=== PATIENT | male | born 1955 | race Caucasian/White ===

== ENCOUNTER → 2017-12-10 | Outpatient (CLI) | payer OTHER | END | disposition home or self-care (01) | LOC: CDC 12:30 | DX: Z01.810 Encounter for preprocedural cardiovascular examination (principal) | CPT/HCPCS: 93000 ==

== ENCOUNTER → 2017-12-18 | Outpatient (CLI) | payer OTHER ==
[~2017-12-18] MED LIST: ACTOS15 MG PO; BYSTOLIC10 MG PO; FLEXERIL5 MG PO; FLOMAX0.4 MG PO; GLUCOTROL10 MG PO; LASIX40 MG PO; LIPITOR20 MG PO; MAGNESIUM400 M1 PO; NEURONTIN300 MG PO; OXYCODONE HCL10 MG PO; OXYCODONE HCL5 M1 PO; PERCOCET 10/1 TABLET PO; ZESTRIL30 MG PO
== END | disposition home or self-care (01) ==
LOC: RAD 13:37
PROC: BB4BZZZ Ultrasonography of Pleura (ICD-10-PCS; principal; 2017-12-18)
DX: R18.8 Other ascites (principal); K74.60 Unspecified cirrhosis of liver; Z53.09 Procedure and treatment not carried out because of other contraindication
CPT/HCPCS: 76705

== ENCOUNTER 2017-12-19 06:35 | Inpatient (IN) | payer OTHER ==
[~2017-12-19] VITALS: Ht 188 cm; Wt 129.7 kg
[~2017-12-19 06:35] MED LIST changes: -PERCOCET 10/1 TABLET PO
[2017-12-19 07:00] VITALS: BP 173/80
[2017-12-19 11:28] LABS: TROP-I INTERPRETATION NEGATIVE; TROPONIN-I < 0.01 ng/mL (0.0-0.30)
[2017-12-19 11:39] LABS: CHLORIDE 106 MEQ/L (99-109); CREATININE 2.5 MG/DL (0.6-1.3); GFR ESTIMATE (CALCULATED) 28 mL/min/ (58.99-99999); GLUCOSE 191 mg/dL (70-99); SODIUM 141 MEQ/L (136-147); UREA NITROGEN (BUN) 56 mg/dL (9-23)
[2017-12-19 16:08] VITALS: BP 178/83
[2017-12-20 00:06] VITALS: BP 174/81
[2017-12-20 05:52] LABS: HEMATOCRIT 30.1 % (38.0-50.0); HEMOGLOBIN 9.7 G/DL (12.5-16.6); MCH 28.4 PG (29.0-34.0); MCHC 32.2 G/DL (30.0-36.0); MCV 88.3 FL (86-99); RBC DIS.WIDTH-CV 14.1 % (11.8-14.6); RED BLOOD COUNT 3.41 M/uL (4.00-5.50); WHITE BLOOD COUNT 6.3 K/uL (4.1-10.2)
[2017-12-20 06:09] LABS: PLATELET COUNT 97 K/uL (156-360)
[2017-12-20 06:23] LABS: CHLORIDE 105 MEQ/L (99-109); CREATININE 2.6 MG/DL (0.6-1.3); GFR ESTIMATE (CALCULATED) 27 mL/min/ (58.99-99999); GLUCOSE 196 mg/dL (70-99); POTASSIUM 4.7 MEQ/L (3.7-5.4); SODIUM 136 MEQ/L (136-147); UREA NITROGEN (BUN) 61 mg/dL (9-23)
[2017-12-20 07:01] LABS: TROP-I INTERPRETATION NEGATIVE; TROPONIN-I < 0.01 ng/mL (0.0-0.30)
[2017-12-20 07:45] VITALS: BP 180/86
[2017-12-20 11:11] VITALS: BP 138/76
[2017-12-20 16:53] VITALS: BP 162/80
[2017-12-21 00:07] VITALS: BP 148/73
[2017-12-21 07:51] VITALS: BP 136/72
[2017-12-21 10:51] VITALS: BP 124/60
[2017-12-21] MEDS ORDERED: PERCOCET 10/1 TABLET PO (13:44)
[2017-12-21 15:54] VITALS: BP 135/71
[2017-12-21 23:43] VITALS: BP 165/77
[2017-12-22 07:43] VITALS: BP 143/78
[2017-12-22 16:14] VITALS: BP 139/66
[2017-12-22 23:54] VITALS: BP 145/71
[2017-12-23 06:25] VITALS: BP 148/78
[2017-12-23 07:47] VITALS: BP 124/67
[2017-12-23 16:30] VITALS: BP 136/71
[2017-12-23 23:24] VITALS: BP 135/66
[2017-12-24 04:52] LABS: BASOPHIL (%) 0.4 % (0-1); EOSINOPHIL (%) 2.5 % (0-5); EOSINOPHIL COUNT 0.1 K/uL (0-0.3); HEMATOCRIT 23.5 % (38.0-50.0); HEMOGLOBIN 7.8 G/DL (12.5-16.6); IMMATURE GRANULOCYTE (%) 1.1 % (0.0-0.7); LYMPHOCYTE (%) 29.8 % (15-42); LYMPHOCYTE COUNT 0.8 K/uL (1.0-2.8); MCH 28.9 PG (29.0-34.0); MCHC 33.2 G/DL (30.0-36.0); MONOCYTE (%) 12.1 % (3-12); MONOCYTE COUNT 0.3 K/uL (0-0.8); NEUTROPHIL (%) 54.1 % (45-76); NEUTROPHIL COUNT 1.5 K/uL (1.8-6.4); PLATELET COUNT 78 K/uL (156-360); RBC DIS.WIDTH-CV 13.8 % (11.8-14.6); RBC DIS.WIDTH-SD 43.3 % (39-53); WHITE BLOOD COUNT 2.8 K/uL (4.1-10.2)
[2017-12-24 04:58] LABS: CHLORIDE 106 mEq/L (99-109); POTASSIUM 5.4 mEq/L (3.7-5.4); SODIUM 136 mEq/L (136-147)
[2017-12-24 04:59] LABS: GLUCOSE 111 mg/dL (70-99)
[2017-12-24 05:03] LABS: CREATININE 2.6 mg/dL (0.6-1.3); GFR ESTIMATE (CALCULATED) 27 mL/min/ (58.99-99999)
[2017-12-24 05:04] LABS: UREA NITROGEN (BUN) 69 mg/dL (9-23)
[2017-12-24 10:03] LABS: HEMOGLOBIN A1c (GLYCOHEMOGLOB) 5.6 % (Below 5.7)
== END 2017-12-24 08:51 | disposition home health service (06) | DRG 475 ==
LOC: SDC → 2SOUTH 10:25 → 3EAST 10:25 → ENRESERV 10:27 → 3EAST 15:19 → SDC 16:30 → 3EAST 12-24 08:51
PROVIDERS: Hospitalist; Internal Medicine; Surgery
PROC: 0Y6H0Z1 Detachment at Right Lower Leg, High, Open Approach (ICD-10-PCS; principal; 2017-12-19)
DX: T87.89 Other complications of amputation stump (principal); D62 Acute posthemorrhagic anemia; Y83.5 Amputation of limb(s) as the cause of abnormal reaction of the patient, or of later complication, without mention of misadventure at the time of the procedure; E11.65 Type 2 diabetes mellitus with hyperglycemia; I10 Essential (primary) hypertension; G89.4 Chronic pain syndrome; Z59.9 Problem related to housing and economic circumstances, unspecified; N40.0 Benign prostatic hyperplasia without lower urinary tract symptoms; Z79.891 Long term (current) use of opiate analgesic; M19.90 Unspecified osteoarthritis, unspecified site; T38.0X5A Adverse effect of glucocorticoids and synthetic analogues, initial encounter
CPT/HCPCS: 36415; 76705; 80048; 82948; 83036; 84484; 85025; 85027; 85610; 85730; 87641; C2628; J0690; J1170; J1650; J1815; J2250; J3010; J7120

== ENCOUNTER → 2018-02-20 | Outpatient (CLI) | payer OTHER ==
[~2018-02-20] VITALS: Ht 188 cm; Wt 124.7 kg
[~2018-02-20] MED LIST changes: +PERCOCET 10/1 TABLET PO
== END | disposition home or self-care (01) ==
LOC: AMB 10:15
PROVIDERS: Internal Medicine Gastroenterology
PROC: 0DJ08ZZ Inspection of Upper Intestinal Tract, Via Natural or Artificial Opening Endoscopic (ICD-10-PCS; principal; 2018-02-20)
DX: K29.70 Gastritis, unspecified, without bleeding (principal); K76.6 Portal hypertension; K31.89 Other diseases of stomach and duodenum; R18.8 Other ascites; K74.60 Unspecified cirrhosis of liver; B18.2 Chronic viral hepatitis C; F10.21 Alcohol dependence, in remission; E72.20 Disorder of urea cycle metabolism, unspecified; F17.200 Nicotine dependence, unspecified, uncomplicated; E11.22 Type 2 diabetes mellitus with diabetic chronic kidney disease; I12.9 Hypertensive chronic kidney disease with stage 1 through stage 4 chronic kidney disease, or unspecified chronic kidney disease; N18.4 Chronic kidney disease, stage 4 (severe); Z82.49 Family history of ischemic heart disease and other diseases of the circulatory system; Z88.5 Allergy status to narcotic agent
CPT/HCPCS: 82948

== ENCOUNTER 2018-05-17 17:49 | Inpatient (IN) | payer OTHER ==
[~2018-05-17] VITALS: Ht 188 cm; Wt 121.5 kg
[2018-05-17 18:47] LABS: HEMATOCRIT 24.5 % (38.0-50.0); HEMOGLOBIN 7.7 G/DL (12.5-16.6); MCH 25.9 PG (29.0-34.0); MCHC 31.4 G/DL (30.0-36.0); MCV 82.5 FL (86-99); PLATELET COUNT 212 K/uL (156-360); RBC DIS.WIDTH-CV 16.9 % (11.8-14.6); RBC DIS.WIDTH-SD 49.8 % (39-53); RED BLOOD COUNT 2.97 M/uL (4.00-5.50); WHITE BLOOD COUNT 17.6 K/uL (4.1-10.2)
[2018-05-17 18:57] LABS: ALBUMIN 2.6 g/dL (3.2-4.8)
[2018-05-17 18:59] LABS: GLUCOSE 131 mg/dL (70-99)
[2018-05-17 19:01] LABS: TOTAL BILIRUBIN 0.6 mg/dL (0.0-1.0)
[2018-05-17 19:03] LABS: ALKALINE PHOSPHATASE 293 IU/L (3-129); CREATININE 2.8 mg/dL (0.6-1.3); GFR ESTIMATE (CALCULATED) 25 mL/min/ (58.99-99999)
[2018-05-17 19:04] LABS: UREA NITROGEN (BUN) 88 mg/dL (9-23)
[2018-05-17 19:05] LABS: AST (GOT) 123 IU/L (2-34)
[2018-05-17 19:06] LABS: ALT (GPT) 54 IU/L (3-49); LIPASE 126 U/L (1.0-51.0)
[2018-05-17 19:09] LABS: TROP-I INTERPRETATION NEGATIVE; TROPONIN-I < 0.01 ng/mL (0.0-0.30)
[2018-05-17 19:16] LABS: CHLORIDE 107 mEq/L (99-109); SODIUM 132 mEq/L (136-147)
[2018-05-17 19:18] LABS: TOTAL PROTEIN 7.7 g/dL (6.4-8.3)
[2018-05-17 19:20] LABS: POTASSIUM 7.7 mEq/L (3.7-5.4)
[2018-05-17 20:01] LABS: INTER. NORMALIZED RATIO 1.3
[2018-05-17 20:04] LABS: PTT 32.1 SEC (25-37)
[2018-05-17 20:08] LABS: PCO2 21 mm Hg (35-45); PO2 102 mm Hg (80-100); pH 7.37 (7.35-7.45)
[2018-05-17 20:09] LABS: BASE EXCESS -10.9 mEq/L (-3 to +3); BICARBONATE 12.1 mEq/L (22-26)
[2018-05-17 20:10] LABS: COMMENTS - BLOOD GASES C+A+; DEVICE ROOM AIR; SITE RR; TOTAL RESP RATE 25 resp/min
[2018-05-17] MEDS ORDERED: OXYCODONE HCL10 MG PO (20:13)
[2018-05-17] MEDS ORDERED: PROTONIX40 MG PO (20:14)
[2018-05-17] MEDS ORDERED: CARDURA2 M1 PO (20:14)
[2018-05-17] MEDS ORDERED: IRON325 M1 PO ×2 (20:14)
[2018-05-17 20:46] LABS: APPEARANCE CLEAR ((CLEAR)); BILIRUBIN NEGATIVE; BLOOD NEGATIVE; COLOR YELLOW ((YELLOW)); GLUCOSE (STRIP) NEGATIVE; KETONES NEGATIVE; LEUKOCYTES TRACE; NITRITE NEGATIVE; PROTEIN (STRIP) 30; SPECIFIC GRAVITY 1.013 (1.000-1.030); UROBILINOGEN 0.2 MG/DL (0.2-1.0)
[2018-05-17 20:55] LABS: BACTERIA RARE /HPF; EPITHELIAL CELLS RARE /HPF; MUCUS TRACE /LPF; RED BLOOD CELLS 0-5 /HPF (0-5); UCUL ADDED? NO; WHITE BLOOD CELLS 0-5 /HPF (0-5)
[2018-05-17 22:20] LABS: CHLORIDE 108 mEq/L (99-109); SODIUM 134 mEq/L (136-147)
[2018-05-17 22:26] LABS: CREATININE 2.7 mg/dL (0.6-1.3); GFR ESTIMATE (CALCULATED) 26 mL/min/ (58.99-99999)
[2018-05-17 22:27] LABS: UREA NITROGEN (BUN) 88 mg/dL (9-23)
[2018-05-17 22:50] LABS: GLUCOSE 207 mg/dL (70-99); POTASSIUM 7.1 mEq/L (3.7-5.4)
[2018-05-17 23:59] VITALS: BP 134/64
[2018-05-18] VITALS (7 sets, daily range): BP systolic 97–146; BP diastolic 52–75
[2018-05-18 06:27] LABS: HEMATOCRIT 20.5 % (38.0-50.0); MCH 24.9 PG (29.0-34.0); MCHC 30.7 G/DL (30.0-36.0); NRBC (%) 0.2 /100 WBC (0-0); RBC DIS.WIDTH-SD 48.9 % (39-53); RED BLOOD COUNT 2.53 M/uL (4.00-5.50); WHITE BLOOD COUNT 12.4 K/uL (4.1-10.2)
[2018-05-18 06:31] LABS: HEMOGLOBIN 6.3 G/DL (12.5-16.6)
[2018-05-18 06:36] LABS: CHLORIDE 106 MEQ/L (99-109); CREATININE 2.6 MG/DL (0.6-1.3); GFR ESTIMATE (CALCULATED) 27 mL/min/ (58.99-99999); GLUCOSE 178 mg/dL (70-99); POTASSIUM 5.8 MEQ/L (3.7-5.4); SODIUM 137 MEQ/L (136-147); UREA NITROGEN (BUN) 77 mg/dL (9-23)
[2018-05-18 06:44] LABS: PLAT.SUFFICIENCY DECREASED
[2018-05-18 06:49] LABS: PLATELET COUNT 140 K/uL (156-360)
[2018-05-19] VITALS (13 sets, daily range): BP systolic 104–160; BP diastolic 58–91
[2018-05-19 06:21] LABS: BASOPHIL (%) 0.2 % (0-1); EOSINOPHIL (%) 0.2 % (0-5); HEMATOCRIT 21.8 % (38.0-50.0); IMMATURE GRANULOCYTE (%) 0.9 % (0.0-0.7); LYMPHOCYTE (%) 8.4 % (15-42); LYMPHOCYTE COUNT 0.9 K/uL (1.0-2.8); MCH 25.7 PG (29.0-34.0); MCHC 31.7 G/DL (30.0-36.0); MCV 81.3 FL (86-99); MONOCYTE (%) 6.4 % (3-12); MONOCYTE COUNT 0.7 K/uL (0-0.8); NEUTROPHIL (%) 83.9 % (45-76); NEUTROPHIL COUNT 8.7 K/uL (1.8-6.4); PLATELET COUNT 126 K/uL (156-360); RBC DIS.WIDTH-CV 16.4 % (11.8-14.6); RBC DIS.WIDTH-SD 47.9 % (39-53); RED BLOOD COUNT 2.68 M/uL (4.00-5.50); WHITE BLOOD COUNT 10.3 K/uL (4.1-10.2)
[2018-05-19 06:24] LABS: HEMOGLOBIN 6.9 G/DL (12.5-16.6)
[2018-05-19 06:27] LABS: CHLORIDE 98 MEQ/L (99-109); CREATININE 2.2 MG/DL (0.6-1.3); GFR ESTIMATE (CALCULATED) 33 mL/min/ (58.99-99999); SODIUM 135 MEQ/L (136-147); UREA NITROGEN (BUN) 63 mg/dL (9-23)
[2018-05-19 06:28] LABS: GLUCOSE 118 mg/dL (70-99); POTASSIUM 4.5 MEQ/L (3.7-5.4)
[2018-05-20] VITALS (7 sets, daily range): BP systolic 109–144; BP diastolic 56–75
[2018-05-20 06:31] LABS: HEMATOCRIT 25.3 % (38.0-50.0); HEMOGLOBIN 8.1 G/DL (12.5-16.6); MCH 26.6 PG (29.0-34.0); MCV 83.2 FL (86-99); PLATELET COUNT 133 K/uL (156-360); RBC DIS.WIDTH-CV 16.3 % (11.8-14.6); RBC DIS.WIDTH-SD 49.7 % (39-53); RED BLOOD COUNT 3.04 M/uL (4.00-5.50); WHITE BLOOD COUNT 11.9 K/uL (4.1-10.2)
[2018-05-20 07:00] LABS: CHLORIDE 95 MEQ/L (99-109); CREATININE 2.3 MG/DL (0.6-1.3); GFR ESTIMATE (CALCULATED) 31 mL/min/ (58.99-99999); POTASSIUM 4.5 MEQ/L (3.7-5.4); SODIUM 132 MEQ/L (136-147); UREA NITROGEN (BUN) 59 mg/dL (9-23)
[2018-05-20 07:01] LABS: GLUCOSE 80 mg/dL (70-99)
[2018-05-21 03:26] VITALS: BP 158/80
[2018-05-21 06:12] LABS: HEMATOCRIT 26.5 % (38.0-50.0); HEMOGLOBIN 8.4 G/DL (12.5-16.6); MCH 26.3 PG (29.0-34.0); MCHC 31.7 G/DL (30.0-36.0); MCV 83.1 FL (86-99); NRBC (%) 0.2 /100 WBC (0-0); PLATELET COUNT 143 K/uL (156-360); RBC DIS.WIDTH-CV 16.4 % (11.8-14.6); RBC DIS.WIDTH-SD 49.4 % (39-53); RED BLOOD COUNT 3.19 M/uL (4.00-5.50); WHITE BLOOD COUNT 9.7 K/uL (4.1-10.2)
[2018-05-21 06:53] LABS: CHLORIDE 97 MEQ/L (99-109); CREATININE 2.6 MG/DL (0.6-1.3); GFR ESTIMATE (CALCULATED) 27 mL/min/ (58.99-99999); SODIUM 133 MEQ/L (136-147); UREA NITROGEN (BUN) 64 mg/dL (9-23)
[2018-05-21 07:05] LABS: GLUCOSE 128 mg/dL (70-99); POTASSIUM 5.5 MEQ/L (3.7-5.4)
[2018-05-21 08:08] VITALS: BP 112/61
[2018-05-21 15:50] VITALS: BP 132/79
[2018-05-22 00:17] VITALS: BP 119/73
[2018-05-22 06:04] LABS: BASOPHIL (%) 0.2 % (0-1); EOSINOPHIL (%) 0.7 % (0-5); EOSINOPHIL COUNT 0.1 K/uL (0-0.3); HEMATOCRIT 25.6 % (38.0-50.0); HEMOGLOBIN 8.1 G/DL (12.5-16.6); IMMATURE GRANULOCYTE (%) 1.1 % (0.0-0.7); LYMPHOCYTE (%) 10.5 % (15-42); LYMPHOCYTE COUNT 0.9 K/uL (1.0-2.8); MCH 26.6 PG (29.0-34.0); MCHC 31.6 G/DL (30.0-36.0); MCV 83.9 FL (86-99); MONOCYTE (%) 6.7 % (3-12); MONOCYTE COUNT 0.6 K/uL (0-0.8); NEUTROPHIL (%) 80.8 % (45-76); NEUTROPHIL COUNT 6.9 K/uL (1.8-6.4); PLATELET COUNT 136 K/uL (156-360); RBC DIS.WIDTH-CV 16.7 % (11.8-14.6); RBC DIS.WIDTH-SD 51.1 % (39-53); RED BLOOD COUNT 3.05 M/uL (4.00-5.50); WHITE BLOOD COUNT 8.6 K/uL (4.1-10.2)
[2018-05-22 06:40] LABS: HCV RNA (LOG IU/mL) 6.19 (())
[2018-05-22 06:46] LABS: CHLORIDE 94 MEQ/L (99-109); CREATININE 2.7 MG/DL (0.6-1.3); GFR ESTIMATE (CALCULATED) 26 mL/min/ (58.99-99999); GLUCOSE 108 mg/dL (70-99); POTASSIUM 4.4 MEQ/L (3.7-5.4); SODIUM 131 MEQ/L (136-147); UREA NITROGEN (BUN) 66 mg/dL (9-23)
[2018-05-22 06:57] VITALS: BP 111/55
[2018-05-22 14:52] LABS: TYPE OF FLUID PARACENTESIS
[2018-05-22 15:16] VITALS: BP 154/72
[2018-05-22 16:09] LABS: APPEARANCE SLIGHTLY CLOUDY; BODY FLUID EOSINOPHILS 0 % (0-25); BODY FLUID RBC'S 9000 /MM^3 (0-100); BODY FLUID WBC'S 458 /MM^3 (0-500); MONONUCLEAR WBC'S 17 %; POLYNUCLEAR WBC'S 83 % (0-25)
[2018-05-22 16:28] LABS: BODY FLUID GLUCOSE 133 MG/DL; BODY FLUID LDH 66 IU/L; BODY FLUID PROTEIN < 3.0 G/DL
[2018-05-22 23:23] VITALS: BP 157/69
[2018-05-23 05:38] LABS: BASOPHIL (%) 0.4 % (0-1); EOSINOPHIL (%) 0.6 % (0-5); EOSINOPHIL COUNT 0.1 K/uL (0-0.3); HEMATOCRIT 23.9 % (38.0-50.0); HEMOGLOBIN 7.7 G/DL (12.5-16.6); IMMATURE GRANULOCYTE (%) 0.6 % (0.0-0.7); LYMPHOCYTE (%) 10.1 % (15-42); LYMPHOCYTE COUNT 0.8 K/uL (1.0-2.8); MCH 26.9 PG (29.0-34.0); MCHC 32.2 G/DL (30.0-36.0); MCV 83.6 FL (86-99); MONOCYTE (%) 7.3 % (3-12); MONOCYTE COUNT 0.6 K/uL (0-0.8); NEUTROPHIL COUNT 6.3 K/uL (1.8-6.4); PLATELET COUNT 112 K/uL (156-360); RBC DIS.WIDTH-CV 16.6 % (11.8-14.6); RBC DIS.WIDTH-SD 50.5 % (39-53); RED BLOOD COUNT 2.86 M/uL (4.00-5.50); WHITE BLOOD COUNT 7.8 K/uL (4.1-10.2)
[2018-05-23 06:48] LABS: CHLORIDE 97 MEQ/L (99-109); CREATININE 2.4 MG/DL (0.6-1.3); GFR ESTIMATE (CALCULATED) 29 mL/min/ (58.99-99999); GLUCOSE 89 mg/dL (70-99); POTASSIUM 4.4 MEQ/L (3.7-5.4); SODIUM 133 MEQ/L (136-147); UREA NITROGEN (BUN) 65 mg/dL (9-23)
[2018-05-23 07:43] VITALS: BP 136/67
[2018-05-23 15:29] VITALS: BP 129/68
[2018-05-23 16:40] LABS: TROP-I INTERPRETATION NEGATIVE; TROPONIN-I < 0.01 ng/mL (0.0-0.30)
[2018-05-23 20:00] LABS: BODY FLUID PH 7.9 (())
[2018-05-24 00:23] VITALS: BP 137/73
[2018-05-24 06:04] LABS: BASOPHIL (%) 0.5 % (0-1); EOSINOPHIL COUNT 0.1 K/uL (0-0.3); HEMOGLOBIN 8.2 G/DL (12.5-16.6); IMMATURE GRANULOCYTE (%) 0.7 % (0.0-0.7); LYMPHOCYTE (%) 7.8 % (15-42); LYMPHOCYTE COUNT 0.7 K/uL (1.0-2.8); MCH 26.7 PG (29.0-34.0); MCHC 31.5 G/DL (30.0-36.0); MCV 84.7 FL (86-99); MONOCYTE (%) 6.2 % (3-12); MONOCYTE COUNT 0.6 K/uL (0-0.8); NEUTROPHIL (%) 83.8 % (45-76); NEUTROPHIL COUNT 7.4 K/uL (1.8-6.4); PLATELET COUNT 122 K/uL (156-360); RBC DIS.WIDTH-CV 16.8 % (11.8-14.6); RBC DIS.WIDTH-SD 51.8 % (39-53); RED BLOOD COUNT 3.07 M/uL (4.00-5.50); WHITE BLOOD COUNT 8.8 K/uL (4.1-10.2)
[2018-05-24 06:27] LABS: CHLORIDE 98 MEQ/L (99-109); CREATININE 2.4 MG/DL (0.6-1.3); GFR ESTIMATE (CALCULATED) 29 mL/min/ (58.99-99999); POTASSIUM 4.7 MEQ/L (3.7-5.4); SODIUM 132 MEQ/L (136-147); UREA NITROGEN (BUN) 63 mg/dL (9-23)
[2018-05-24 06:37] LABS: GLUCOSE 153 mg/dL (70-99)
[2018-05-24 07:36] VITALS: BP 159/76
[2018-05-24 09:41] LABS: TYPE OF FLUID PARACENTESIS
[2018-05-24 09:58] LABS: APPEARANCE SLIGHTLY HAZY; BODY FLUID RBC'S 5000 /MM^3 (0-100); BODY FLUID WBC'S 485 /MM^3 (0-500)
[2018-05-24 10:36] LABS: BODY FLUID EOSINOPHILS 2 % (0-25); MONONUCLEAR WBC'S 52 %; POLYNUCLEAR WBC'S 46 % (0-25)
[2018-05-24 16:00] VITALS: BP 146/71
[2018-05-24 23:38] VITALS: BP 142/76
[2018-05-25 06:03] LABS: BASOPHIL (%) 0.8 % (0-1); BASOPHIL COUNT 0.1 K/uL (0-0.1); EOSINOPHIL (%) 0.5 % (0-5); HEMATOCRIT 26.7 % (38.0-50.0); HEMOGLOBIN 8.2 G/DL (12.5-16.6); IMMATURE GRANULOCYTE (%) 0.9 % (0.0-0.7); LYMPHOCYTE (%) 9.3 % (15-42); LYMPHOCYTE COUNT 0.7 K/uL (1.0-2.8); MCH 26.3 PG (29.0-34.0); MCHC 30.7 G/DL (30.0-36.0); MCV 85.6 FL (86-99); MONOCYTE (%) 8.8 % (3-12); MONOCYTE COUNT 0.7 K/uL (0-0.8); NEUTROPHIL (%) 79.7 % (45-76); NEUTROPHIL COUNT 6.3 K/uL (1.8-6.4); PLATELET COUNT 111 K/uL (156-360); RBC DIS.WIDTH-CV 16.7 % (11.8-14.6); RBC DIS.WIDTH-SD 52.1 % (39-53); RED BLOOD COUNT 3.12 M/uL (4.00-5.50); WHITE BLOOD COUNT 7.9 K/uL (4.1-10.2)
[2018-05-25 06:50] LABS: CHLORIDE 97 MEQ/L (99-109); CREATININE 2.3 MG/DL (0.6-1.3); GFR ESTIMATE (CALCULATED) 31 mL/min/ (58.99-99999); GLUCOSE 169 mg/dL (70-99); SODIUM 132 MEQ/L (136-147); UREA NITROGEN (BUN) 65 mg/dL (9-23)
[2018-05-25 06:52] LABS: POTASSIUM 5.8 MEQ/L (3.7-5.4)
[2018-05-25 07:14] VITALS: BP 141/73
[2018-05-25 16:13] VITALS: BP 138/68
[2018-05-25 22:52] VITALS: BP 184/79
[2018-05-25 23:42] VITALS: BP 141/79
[2018-05-26 05:50] LABS: BASOPHIL (%) 0.5 % (0-1); EOSINOPHIL (%) 0.5 % (0-5); HEMATOCRIT 24.6 % (38.0-50.0); HEMOGLOBIN 7.8 G/DL (12.5-16.6); LYMPHOCYTE (%) 9.8 % (15-42); LYMPHOCYTE COUNT 0.8 K/uL (1.0-2.8); MCH 27.2 PG (29.0-34.0); MCHC 31.7 G/DL (30.0-36.0); MCV 85.7 FL (86-99); MONOCYTE COUNT 0.7 K/uL (0-0.8); NEUTROPHIL (%) 79.2 % (45-76); NEUTROPHIL COUNT 6.4 K/uL (1.8-6.4); NRBC (%) 0.2 /100 WBC (0-0); PLATELET COUNT 111 K/uL (156-360); RBC DIS.WIDTH-SD 52.5 % (39-53); RED BLOOD COUNT 2.87 M/uL (4.00-5.50); WHITE BLOOD COUNT 8.1 K/uL (4.1-10.2)
[2018-05-26 06:16] LABS: CHLORIDE 96 MEQ/L (99-109); CREATININE 2.1 MG/DL (0.6-1.3); GFR ESTIMATE (CALCULATED) 34 mL/min/ (58.99-99999); GLUCOSE 236 mg/dL (70-99); POTASSIUM 4.9 MEQ/L (3.7-5.4); SODIUM 131 MEQ/L (136-147); UREA NITROGEN (BUN) 59 mg/dL (9-23)
[2018-05-26 07:02] VITALS: BP 138/77
[2018-05-26] MEDS ORDERED: XIFAXAN550 MG PO (12:59)
[2018-05-26] MEDS ORDERED: POLYETHYLENE GL17 GM PO (13:00)
[2018-05-26] MEDS ORDERED: NADOLOL20 MG PO (13:00)
[2018-05-26] MEDS ORDERED: SENNA PLUS TAB1 EACH PO (13:00)
[2018-05-26] MEDS ORDERED: LACTULOSE10 GM/151 PO (13:01)
[2018-05-26] MEDS ORDERED: CIPRO250 MG PO (13:03)
[2018-05-26 15:10] VITALS: BP 138/76
[2018-05-26 23:13] VITALS: BP 140/62
[2018-05-27 05:57] LABS: BASOPHIL (%) 0.7 % (0-1); BASOPHIL COUNT 0.1 K/uL (0-0.1); EOSINOPHIL (%) 0.5 % (0-5); EOSINOPHIL COUNT 0.1 K/uL (0-0.3); HEMATOCRIT 24.7 % (38.0-50.0); HEMOGLOBIN 7.7 G/DL (12.5-16.6); LYMPHOCYTE (%) 7.8 % (15-42); LYMPHOCYTE COUNT 0.8 K/uL (1.0-2.8); MCH 26.4 PG (29.0-34.0); MCHC 31.2 G/DL (30.0-36.0); MCV 84.6 FL (86-99); MONOCYTE (%) 9.7 % (3-12); NEUTROPHIL (%) 80.3 % (45-76); NEUTROPHIL COUNT 7.8 K/uL (1.8-6.4); PLATELET COUNT 106 K/uL (156-360); RBC DIS.WIDTH-CV 16.9 % (11.8-14.6); RBC DIS.WIDTH-SD 52.5 % (39-53); RED BLOOD COUNT 2.92 M/uL (4.00-5.50); WHITE BLOOD COUNT 9.8 K/uL (4.1-10.2)
[2018-05-27 06:19] LABS: CHLORIDE 95 MEQ/L (99-109); CREATININE 2.2 MG/DL (0.6-1.3); GFR ESTIMATE (CALCULATED) 33 mL/min/ (58.99-99999); GLUCOSE 155 mg/dL (70-99); POTASSIUM 5.1 MEQ/L (3.7-5.4); SODIUM 131 MEQ/L (136-147); UREA NITROGEN (BUN) 62 mg/dL (9-23)
[2018-05-27 06:58] VITALS: BP 127/65
== END 2018-05-27 14:40 | disposition home or self-care (01) | DRG 435 ==
LOC: EME 17:49 → EDOF 22:11 → 5SOUTH 22:11 → ENRESERV 22:12 → 5SOUTH 23:35 → ENRESERV 05-26 15:26 → 5SOUTH 05-26 16:16
PROVIDERS: Hospitalist; Internal Medicine; Internal Medicine Gastroenterology; Internal Medicine Nephrology; Nurse Practitioner Family
PROC: 30233N1 Transfusion of Nonautologous Red Blood Cells into Peripheral Vein, Percutaneous Approach (ICD-10-PCS; principal; 2018-05-19)
PROC: 0FB13ZX Excision of Right Lobe Liver, Percutaneous Approach, Diagnostic (ICD-10-PCS; 2018-05-20)
PROC: 0W9G3ZZ Drainage of Peritoneal Cavity, Percutaneous Approach (ICD-10-PCS; 2018-05-22)
PROC: 0W9G3ZZ Drainage of Peritoneal Cavity, Percutaneous Approach (ICD-10-PCS; 2018-05-24)
DX: C22.0 Liver cell carcinoma (principal); N17.0 Acute kidney failure with tubular necrosis; K65.2 Spontaneous bacterial peritonitis; E11.22 Type 2 diabetes mellitus with diabetic chronic kidney disease; K76.6 Portal hypertension; D69.59 Other secondary thrombocytopenia; E87.2 Acidosis; E87.5 Hyperkalemia; E66.01 Morbid (severe) obesity due to excess calories; E87.1 Hypo-osmolality and hyponatremia; N18.3 Chronic kidney disease, stage 3 (moderate); K70.31 Alcoholic cirrhosis of liver with ascites; I85.00 Esophageal varices without bleeding; K42.9 Umbilical hernia without obstruction or gangrene; D63.1 Anemia in chronic kidney disease; K59.00 Constipation, unspecified; D63.0 Anemia in neoplastic disease; G89.29 Other chronic pain; Z68.34 Body mass index [BMI] 34.0-34.9, adult; I12.9 Hypertensive chronic kidney disease with stage 1 through stage 4 chronic kidney disease, or unspecified chronic kidney disease; F10.11 Alcohol abuse, in remission; Z87.891 Personal history of nicotine dependence; Z89.511 Acquired absence of right leg below knee; E86.0 Dehydration; T50.2X5A Adverse effect of carbonic-anhydrase inhibitors, benzothiadiazides and other diuretics, initial encounter; B17.10 Acute hepatitis C without hepatic coma; E11.51 Type 2 diabetes mellitus with diabetic peripheral angiopathy without gangrene; Z66 Do not resuscitate; E87.6 Hypokalemia; I48.91 Unspecified atrial fibrillation; K31.89 Other diseases of stomach and duodenum; R62.7 Adult failure to thrive; Z79.84 Long term (current) use of oral hypoglycemic drugs
CPT/HCPCS: 36600; 49083; 71046; 74176; 77012; 80048; 80048 91; 80053; 80069; 81003; 82010; 82140; 82945; 82948; 83605; 83615 91; 83690; 83986 90; 84132 91; 84157; 84484; 85025; 85027; 85610; 85730; 86850; 86900; 86901; 86920; 87040; 87070; 87075; 87205; 87522 90; 88108; 88305; 88313; 88341 TC; 88342 TC; 89051; 93005; 94640; 99281; 99285; J0696; J1170; J1644; J1650; J1815; J1940; J2405; J3010; J7030; J7050; J7070; P9016; P9047

== ENCOUNTER 2018-06-03 16:46 | Inpatient (IN) | payer OTHER ==
[~2018-06-03] VITALS: Ht 188 cm; Wt 127.8 kg
[~2018-06-03 16:46] MED LIST changes: +CARDURA2 M1 PO; +CIPRO250 MG PO; +IRON325 M1 PO; +LACTULOSE10 GM/151 PO; +NADOLOL20 MG PO; +POLYETHYLENE GL17 GM PO; +PROTONIX40 MG PO; +SENNA PLUS TAB1 EACH PO; +XIFAXAN550 MG PO
[2018-06-03 17:58] LABS: HEMOGLOBIN 8.5 G/DL (12.5-16.6); MCH 27.1 PG (29.0-34.0); MCHC 32.7 G/DL (30.0-36.0); MCV 82.8 FL (86-99); PLATELET COUNT 129 K/uL (156-360); RBC DIS.WIDTH-CV 17.9 % (11.8-14.6); RBC DIS.WIDTH-SD 54.4 % (39-53); RED BLOOD COUNT 3.14 M/uL (4.00-5.50)
[2018-06-03 18:06] LABS: ALBUMIN 2.3 g/dL (3.2-4.8); CHLORIDE 96 mEq/L (99-109); SODIUM 131 mEq/L (136-147)
[2018-06-03 18:09] LABS: GLUCOSE 123 mg/dL (70-99); TOTAL PROTEIN 6.4 g/dL (6.4-8.3)
[2018-06-03 18:10] LABS: TOTAL BILIRUBIN 1.3 mg/dL (0.0-1.0)
[2018-06-03 18:12] LABS: ALKALINE PHOSPHATASE 384 IU/L (3-129); CREATININE 4.3 mg/dL (0.6-1.3); GFR ESTIMATE (CALCULATED) 15 mL/min/ (58.99-99999)
[2018-06-03 18:13] LABS: UREA NITROGEN (BUN) 100 mg/dL (9-23)
[2018-06-03 18:14] LABS: AST (GOT) 215 IU/L (2-34)
[2018-06-03 18:15] LABS: ALT (GPT) 74 IU/L (3-49); CREATINE KINASE 38 IU/L (1-294)
[2018-06-03 18:20] LABS: POTASSIUM 6.5 mEq/L (3.7-5.4)
[2018-06-03 20:09] LABS: APPEARANCE SL.HAZY ((CLEAR)); BILIRUBIN NEGATIVE; BLOOD NEGATIVE; COLOR AMBER ((YELLOW)); GLUCOSE (STRIP) NEGATIVE; KETONES NEGATIVE; LEUKOCYTES NEGATIVE; NITRITE NEGATIVE; PROTEIN (STRIP) 30; SPECIFIC GRAVITY 1.016 (1.000-1.030); UROBILINOGEN 0.2 MG/DL (0.2-1.0)
[2018-06-03 20:31] LABS: BACTERIA NONE SEEN /HPF; EPITHELIAL CELLS RARE /HPF; HYALINE CASTS TNTC /LPF; MUCUS TRACE /LPF; RED BLOOD CELLS 0-5 /HPF (0-5); UCUL ADDED? NO; WHITE BLOOD CELLS 0-5 /HPF (0-5)
[2018-06-03 20:46] LABS: TROP-I INTERPRETATION NEGATIVE; TROPONIN-I < 0.01 ng/mL (0.0-0.30)
[2018-06-03 21:48] LABS: CHLORIDE 97 mEq/L (99-109); POTASSIUM 5.7 mEq/L (3.7-5.4); SODIUM 129 mEq/L (136-147)
[2018-06-03 21:50] LABS: GLUCOSE 144 mg/dL (70-99)
[2018-06-03 21:54] LABS: CREATININE 3.9 mg/dL (0.6-1.3); GFR ESTIMATE (CALCULATED) 17 mL/min/ (58.99-99999)
[2018-06-03 21:56] LABS: LIPASE 59 U/L (1.0-51.0)
[2018-06-03 22:02] LABS: UREA NITROGEN (BUN) 116 mg/dL (9-23)
[2018-06-03 23:40] LABS: SERUM ETHYL ALCOHOL < 10 mg/dL
[2018-06-04] VITALS (13 sets, daily range): BP systolic 78–130; BP diastolic 46–65
[2018-06-04 00:38] LABS: INTER. NORMALIZED RATIO 1.4
[2018-06-04 00:40] LABS: PTT 30.2 SEC (25-37)
[2018-06-04 12:13] LABS: HEMATOCRIT 24.7 % (38.0-50.0); HEMOGLOBIN 7.9 G/DL (12.5-16.6); MCH 26.8 PG (29.0-34.0); MCV 83.7 FL (86-99); PLATELET COUNT 106 K/uL (156-360); RED BLOOD COUNT 2.95 M/uL (4.00-5.50); WHITE BLOOD COUNT 10.7 K/uL (4.1-10.2)
[2018-06-04 13:18] LABS: TYPE OF FLUID PARACENTESIS
[2018-06-04 13:48] LABS: APPEARANCE CLOUDY; BODY FLUID RBC'S 3000 /MM^3 (0-100); BODY FLUID WBC'S 5226 /MM^3 (0-500)
[2018-06-04 14:14] LABS: ALBUMIN 2.2 G/DL (3.2-4.8); CHLORIDE 99 MEQ/L (99-109); CREATININE 3.3 MG/DL (0.6-1.3); GFR ESTIMATE (CALCULATED) 20 mL/min/ (58.99-99999); GLUCOSE 141 mg/dL (70-99); POTASSIUM 5.7 MEQ/L (3.7-5.4); SODIUM 132 MEQ/L (136-147); UREA NITROGEN (BUN) 99 mg/dL (9-23)
[2018-06-04 14:17] LABS: PHOSPHORUS 7.6 mg/dL (2.5-4.9)
[2018-06-04 14:27] LABS: BODY FLUID EOSINOPHILS 0 % (0-25); COMMENT MODERATE MACROPHAGES SEEN; MONONUCLEAR WBC'S 0 %; POLYNUCLEAR WBC'S 100 % (0-25)
[2018-06-04 14:29] LABS: BODY FLUID AMYLASE 10 U/L; BODY FLUID GLUCOSE 152 MG/DL; BODY FLUID LDH 318 IU/L; BODY FLUID PROTEIN < 3.0 G/DL
[2018-06-04 15:29] LABS: BODY FL. SPEC. GRAV. 1.019
[2018-06-05 04:42] VITALS: BP 134/68
[2018-06-05 06:18] LABS: BASOPHIL (%) 0.2 % (0-1); EOSINOPHIL (%) 0.7 % (0-5); EOSINOPHIL COUNT 0.1 K/uL (0-0.3); HEMATOCRIT 24.4 % (38.0-50.0); HEMOGLOBIN 7.8 G/DL (12.5-16.6); IMMATURE GRANULOCYTE (%) 1.6 % (0.0-0.7); LYMPHOCYTE (%) 8.1 % (15-42); MCH 26.6 PG (29.0-34.0); MCV 83.3 FL (86-99); MONOCYTE (%) 7.4 % (3-12); MONOCYTE COUNT 0.9 K/uL (0-0.8); PLATELET COUNT 123 K/uL (156-360); RBC DIS.WIDTH-CV 18.1 % (11.8-14.6); RBC DIS.WIDTH-SD 53.7 % (39-53); RED BLOOD COUNT 2.93 M/uL (4.00-5.50); WHITE BLOOD COUNT 12.3 K/uL (4.1-10.2)
[2018-06-05 06:46] LABS: ALBUMIN 2.3 G/DL (3.2-4.8); ALKALINE PHOSPHATASE 326 IU/L (3-129); ALT (GPT) 51 IU/L (3-49); AST (GOT) 106 IU/L (2-34); CHLORIDE 99 MEQ/L (99-109); CREATININE 3.5 MG/DL (0.6-1.3); GFR ESTIMATE (CALCULATED) 19 mL/min/ (58.99-99999); SODIUM 133 MEQ/L (136-147); TOTAL PROTEIN 5.6 G/DL (6.4-8.3)
[2018-06-05 06:48] LABS: GLUCOSE 54 mg/dL (70-99)
[2018-06-05 06:56] LABS: POTASSIUM 5.9 MEQ/L (3.7-5.4)
[2018-06-05 06:59] LABS: UREA NITROGEN (BUN) 104 mg/dL (9-23)
[2018-06-05 07:25] VITALS: BP 117/65
[2018-06-05 10:32] LABS: HEMOGLOBIN A1c (GLYCOHEMOGLOB) 6.5 % (Below 5.7)
[2018-06-05 10:45] VITALS: BP 114/60
[2018-06-05 15:24] LABS: CHLORIDE 99 MEQ/L (99-109); CREATININE 3.5 MG/DL (0.6-1.3); GFR ESTIMATE (CALCULATED) 19 mL/min/ (58.99-99999); GLUCOSE 61 mg/dL (70-99); POTASSIUM 5.2 MEQ/L (3.7-5.4); SODIUM 132 MEQ/L (136-147)
[2018-06-05 15:28] LABS: UREA NITROGEN (BUN) 108 mg/dL (9-23)
[2018-06-05 15:50] VITALS: BP 134/67
[2018-06-05 19:33] VITALS: BP 142/66
[2018-06-05 23:37] VITALS: BP 132/65
[2018-06-06 06:14] LABS: BASOPHIL (%) 0.3 % (0-1); EOSINOPHIL (%) 0.7 % (0-5); EOSINOPHIL COUNT 0.1 K/uL (0-0.3); HEMATOCRIT 22.8 % (38.0-50.0); HEMOGLOBIN 7.3 G/DL (12.5-16.6); IMMATURE GRANULOCYTE (%) 1.4 % (0.0-0.7); LYMPHOCYTE (%) 7.5 % (15-42); LYMPHOCYTE COUNT 0.7 K/uL (1.0-2.8); MCH 26.4 PG (29.0-34.0); MCV 82.6 FL (86-99); MONOCYTE (%) 7.7 % (3-12); MONOCYTE COUNT 0.7 K/uL (0-0.8); NEUTROPHIL (%) 82.4 % (45-76); NEUTROPHIL COUNT 7.3 K/uL (1.8-6.4); PLATELET COUNT 87 K/uL (156-360); RBC DIS.WIDTH-CV 18.3 % (11.8-14.6); RBC DIS.WIDTH-SD 54.3 % (39-53); RED BLOOD COUNT 2.76 M/uL (4.00-5.50); WHITE BLOOD COUNT 8.8 K/uL (4.1-10.2)
[2018-06-06 06:33] LABS: ALBUMIN 2.5 G/DL (3.2-4.8); ALT (GPT) 41 IU/L (3-49); AST (GOT) 85 IU/L (2-34); CHLORIDE 96 MEQ/L (99-109); CREATININE 3.4 MG/DL (0.6-1.3); GFR ESTIMATE (CALCULATED) 20 mL/min/ (58.99-99999); POTASSIUM 5.3 MEQ/L (3.7-5.4); SODIUM 133 MEQ/L (136-147); TOTAL PROTEIN 5.4 G/DL (6.4-8.3)
[2018-06-06 06:35] LABS: ALKALINE PHOSPHATASE 415 IU/L (3-129); GLUCOSE 122 mg/dL (70-99); TOTAL BILIRUBIN 1.4 MG/DL (0.0-1.0); UREA NITROGEN (BUN) 107 mg/dL (9-23)
[2018-06-06 07:24] VITALS: BP 132/73
[2018-06-06 11:20] VITALS: BP 138/75
[2018-06-06 15:56] VITALS: BP 126/73
[2018-06-06 19:35] LABS: BODY FLUID PH 7.5 (())
[2018-06-06 21:30] VITALS: BP 151/73
[2018-06-07 05:55] LABS: BASOPHIL (%) 0.3 % (0-1); EOSINOPHIL (%) 0.6 % (0-5); EOSINOPHIL COUNT 0.1 K/uL (0-0.3); HEMATOCRIT 24.3 % (38.0-50.0); HEMOGLOBIN 7.8 G/DL (12.5-16.6); IMMATURE GRANULOCYTE (%) 1.8 % (0.0-0.7); LYMPHOCYTE (%) 7.6 % (15-42); LYMPHOCYTE COUNT 0.7 K/uL (1.0-2.8); MCH 26.5 PG (29.0-34.0); MCHC 32.1 G/DL (30.0-36.0); MCV 82.7 FL (86-99); MONOCYTE (%) 7.2 % (3-12); MONOCYTE COUNT 0.6 K/uL (0-0.8); NEUTROPHIL (%) 82.5 % (45-76); NEUTROPHIL COUNT 7.3 K/uL (1.8-6.4); PLATELET COUNT 96 K/uL (156-360); RBC DIS.WIDTH-CV 18.4 % (11.8-14.6); RBC DIS.WIDTH-SD 54.3 % (39-53); RED BLOOD COUNT 2.94 M/uL (4.00-5.50); WHITE BLOOD COUNT 8.8 K/uL (4.1-10.2)
[2018-06-07 06:38] LABS: ALBUMIN 2.6 G/DL (3.2-4.8); ALKALINE PHOSPHATASE 375 IU/L (3-129); ALT (GPT) 38 IU/L (3-49); AST (GOT) 65 IU/L (2-34); CHLORIDE 99 MEQ/L (99-109); CREATININE 3.1 MG/DL (0.6-1.3); GFR ESTIMATE (CALCULATED) 22 mL/min/ (58.99-99999); GLUCOSE 162 mg/dL (70-99); POTASSIUM 5.2 MEQ/L (3.7-5.4); SODIUM 137 MEQ/L (136-147); TOTAL PROTEIN 5.7 G/DL (6.4-8.3); UREA NITROGEN (BUN) 96 mg/dL (9-23)
[2018-06-07 06:50] LABS: TOTAL BILIRUBIN 1.7 MG/DL (0.0-1.0)
[2018-06-07 07:21] VITALS: BP 143/75
[2018-06-07 10:39] LABS: TYPE OF FLUID PARACENTESIS
[2018-06-07 11:13] LABS: APPEARANCE YELLOW- SL. CLOUDY; BODY FLUID EOSINOPHILS 0 % (0-25); BODY FLUID RBC'S 5000 /MM^3 (0-100); BODY FLUID WBC'S 677 /MM^3 (0-500); MONONUCLEAR WBC'S 11 %; POLYNUCLEAR WBC'S 89 % (0-25)
[2018-06-07 11:44] LABS: BODY FLUID PROTEIN < 3.0 G/DL
[2018-06-07 12:26] VITALS: BP 125/63
[2018-06-07 17:06] VITALS: BP 130/76
[2018-06-07 19:00] VITALS: BP 116/56
[2018-06-07 23:03] VITALS: BP 144/66
[2018-06-08 06:09] LABS: BASOPHIL (%) 0.1 % (0-1); EOSINOPHIL (%) 0.7 % (0-5); EOSINOPHIL COUNT 0.1 K/uL (0-0.3); HEMATOCRIT 24.4 % (38.0-50.0); HEMOGLOBIN 7.9 G/DL (12.5-16.6); IMMATURE GRANULOCYTE (%) 1.5 % (0.0-0.7); LYMPHOCYTE COUNT 0.6 K/uL (1.0-2.8); MCH 27.1 PG (29.0-34.0); MCHC 32.4 G/DL (30.0-36.0); MCV 83.6 FL (86-99); MONOCYTE (%) 7.2 % (3-12); MONOCYTE COUNT 0.6 K/uL (0-0.8); NEUTROPHIL (%) 83.5 % (45-76); NEUTROPHIL COUNT 7.3 K/uL (1.8-6.4); PLATELET COUNT 85 K/uL (156-360); RBC DIS.WIDTH-CV 18.6 % (11.8-14.6); RBC DIS.WIDTH-SD 56.1 % (39-53); RED BLOOD COUNT 2.92 M/uL (4.00-5.50); WHITE BLOOD COUNT 8.8 K/uL (4.1-10.2)
[2018-06-08 06:48] LABS: ALBUMIN 2.7 G/DL (3.2-4.8); ALKALINE PHOSPHATASE 376 IU/L (3-129); ALT (GPT) 33 IU/L (3-49); AST (GOT) 63 IU/L (2-34); CHLORIDE 101 MEQ/L (99-109); CREATININE 2.6 MG/DL (0.6-1.3); GFR ESTIMATE (CALCULATED) 27 mL/min/ (58.99-99999); GLUCOSE 190 mg/dL (70-99); PHOSPHORUS 4.3 mg/dL (2.5-4.9); POTASSIUM 5.3 MEQ/L (3.7-5.4); SODIUM 139 MEQ/L (136-147); TOTAL BILIRUBIN 1.8 MG/DL (0.0-1.0); TOTAL PROTEIN 5.5 G/DL (6.4-8.3); UREA NITROGEN (BUN) 82 mg/dL (9-23)
[2018-06-08 07:33] VITALS: BP 151/79
[2018-06-08 15:16] VITALS: BP 136/78
[2018-06-08 23:05] VITALS: BP 129/78
[2018-06-09 06:32] LABS: BASOPHIL (%) 0.3 % (0-1); EOSINOPHIL (%) 0.8 % (0-5); EOSINOPHIL COUNT 0.1 K/uL (0-0.3); HEMATOCRIT 25.4 % (38.0-50.0); IMMATURE GRANULOCYTE (%) 1.7 % (0.0-0.7); LYMPHOCYTE (%) 7.2 % (15-42); LYMPHOCYTE COUNT 0.8 K/uL (1.0-2.8); MCH 26.4 PG (29.0-34.0); MCHC 31.5 G/DL (30.0-36.0); MCV 83.8 FL (86-99); MONOCYTE (%) 6.7 % (3-12); MONOCYTE COUNT 0.8 K/uL (0-0.8); NEUTROPHIL (%) 83.3 % (45-76); NEUTROPHIL COUNT 9.8 K/uL (1.8-6.4); RBC DIS.WIDTH-CV 19.1 % (11.8-14.6); RBC DIS.WIDTH-SD 56.9 % (39-53); RED BLOOD COUNT 3.03 M/uL (4.00-5.50); WHITE BLOOD COUNT 11.7 K/uL (4.1-10.2)
[2018-06-09 06:46] LABS: ALBUMIN 2.4 G/DL (3.2-4.8); CHLORIDE 101 MEQ/L (99-109); CREATININE 2.5 MG/DL (0.6-1.3); GFR ESTIMATE (CALCULATED) 28 mL/min/ (58.99-99999); GLUCOSE 203 mg/dL (70-99); PHOSPHORUS 4.4 mg/dL (2.5-4.9); POTASSIUM 4.8 MEQ/L (3.7-5.4); SODIUM 136 MEQ/L (136-147); UREA NITROGEN (BUN) 77 mg/dL (9-23)
[2018-06-09 06:49] LABS: PLAT.SUFFICIENCY DECREASED; PLATELET COUNT 87 K/uL (156-360)
[2018-06-09 07:54] VITALS: BP 117/56
[2018-06-09 15:55] VITALS: BP 133/75
[2018-06-09 22:40] VITALS: BP 125/92
[2018-06-10 06:31] LABS: HEMOGLOBIN 7.3 G/DL (12.5-16.6); MCH 26.7 PG (29.0-34.0); MCHC 31.7 G/DL (30.0-36.0); MCV 84.2 FL (86-99); PLATELET COUNT 90 K/uL (156-360); RBC DIS.WIDTH-CV 19.6 % (11.8-14.6); RBC DIS.WIDTH-SD 58.1 % (39-53); RED BLOOD COUNT 2.73 M/uL (4.00-5.50); WHITE BLOOD COUNT 14.7 K/uL (4.1-10.2)
[2018-06-10 06:43] LABS: CHLORIDE 99 MEQ/L (99-109); CREATININE 2.8 MG/DL (0.6-1.3); GFR ESTIMATE (CALCULATED) 25 mL/min/ (58.99-99999); GLUCOSE 124 mg/dL (70-99); POTASSIUM 4.7 MEQ/L (3.7-5.4); SODIUM 138 MEQ/L (136-147); UREA NITROGEN (BUN) 83 mg/dL (9-23)
[2018-06-10 07:15] VITALS: BP 152/69
[2018-06-10 16:36] VITALS: BP 99/59
[2018-06-10 22:57] VITALS: BP 132/68
[2018-06-11 05:15] LABS: BASOPHIL (%) 0.3 % (0-1); BASOPHIL COUNT 0.1 K/uL (0-0.1); EOSINOPHIL (%) 0.3 % (0-5); EOSINOPHIL COUNT 0.1 K/uL (0-0.3); HEMATOCRIT 22.9 % (38.0-50.0); HEMOGLOBIN 7.3 G/DL (12.5-16.6); IMMATURE GRANULOCYTE (%) 1.5 % (0.0-0.7); LYMPHOCYTE (%) 6.1 % (15-42); LYMPHOCYTE COUNT 1.1 K/uL (1.0-2.8); MCH 26.8 PG (29.0-34.0); MCHC 31.9 G/DL (30.0-36.0); MCV 84.2 FL (86-99); MONOCYTE (%) 5.7 % (3-12); NEUTROPHIL (%) 86.1 % (45-76); NEUTROPHIL COUNT 14.9 K/uL (1.8-6.4); PLATELET COUNT 98 K/uL (156-360); RBC DIS.WIDTH-CV 19.9 % (11.8-14.6); RBC DIS.WIDTH-SD 58.6 % (39-53); RED BLOOD COUNT 2.72 M/uL (4.00-5.50); WHITE BLOOD COUNT 17.3 K/uL (4.1-10.2)
[2018-06-11 05:39] LABS: CHLORIDE 98 MEQ/L (99-109); CREATININE 2.9 MG/DL (0.6-1.3); GFR ESTIMATE (CALCULATED) 24 mL/min/ (58.99-99999); GLUCOSE 107 mg/dL (70-99); POTASSIUM 4.7 MEQ/L (3.7-5.4); SODIUM 136 MEQ/L (136-147); UREA NITROGEN (BUN) 92 mg/dL (9-23)
[2018-06-11 06:56] VITALS: BP 139/67
[2018-06-11 15:13] VITALS: BP 117/68
[2018-06-11 23:12] VITALS: BP 109/53
[2018-06-12 07:33] VITALS: BP 141/72
[2018-06-12 15:42] VITALS: BP 123/62
[2018-06-13 00:22] VITALS: BP 129/72
[2018-06-13 07:31] VITALS: BP 117/64
[2018-06-13 16:18] VITALS: BP 112/64
[2018-06-13 22:47] VITALS: BP 129/73
[2018-06-14 07:20] VITALS: BP 122/88
[2018-06-14] MEDS ORDERED: BENTYL10 MG PO (09:27)
[2018-06-14] MEDS ORDERED: FENTANYL1 EAC4 TD (09:29)
[2018-06-14] MEDS ORDERED: OXYCODONE HCL5 MG PO (09:30)
== END 2018-06-14 13:15 | disposition hospice, home (50) | DRG 432 ==
LOC: EME 16:46 → EDOF 06-04 00:08 → 5EAST 06-04 00:08
PROVIDERS: Hospitalist; Internal Medicine Gastroenterology; Internal Medicine Nephrology; Physician Assistant; Physician Assistant Medical
DX: K70.31 Alcoholic cirrhosis of liver with ascites (principal); K65.2 Spontaneous bacterial peritonitis; N17.9 Acute kidney failure, unspecified; E87.5 Hyperkalemia; E87.2 Acidosis; E87.1 Hypo-osmolality and hyponatremia; E88.09 Other disorders of plasma-protein metabolism, not elsewhere classified; D61.818 Other pancytopenia; C78.02 Secondary malignant neoplasm of left lung; C78.01 Secondary malignant neoplasm of right lung; E11.51 Type 2 diabetes mellitus with diabetic peripheral angiopathy without gangrene; E11.22 Type 2 diabetes mellitus with diabetic chronic kidney disease; E86.0 Dehydration; B19.20 Unspecified viral hepatitis C without hepatic coma; C22.0 Liver cell carcinoma; I12.9 Hypertensive chronic kidney disease with stage 1 through stage 4 chronic kidney disease, or unspecified chronic kidney disease; N18.3 Chronic kidney disease, stage 3 (moderate); R62.7 Adult failure to thrive; R79.1 Abnormal coagulation profile; Z66 Do not resuscitate; G89.4 Chronic pain syndrome; F10.11 Alcohol abuse, in remission; Y90.0 Blood alcohol level of less than 20 mg/100 ml; M19.90 Unspecified osteoarthritis, unspecified site; F17.200 Nicotine dependence, unspecified, uncomplicated; E66.9 Obesity, unspecified; Z68.36 Body mass index [BMI] 36.0-36.9, adult; Z79.84 Long term (current) use of oral hypoglycemic drugs; Z86.14 Personal history of Methicillin resistant Staphylococcus aureus infection; Z89.511 Acquired absence of right leg below knee
CPT/HCPCS: 49083; 71045; 74018; 74176; 76770; 80048; 80048 91; 80053; 80069; 81003; 82140; 82150 91; 82272; 82550; 82945; 82948; 83036; 83605; 83615 91; 83690; 83986 90; 84100; 84157; 84315; 84484; 85025; 85027; 85610; 85730; 87040; 87070; 87075; 87205; 88108; 88305; 89051; 93005; 94640; 97530 GP; 99281; 99284; G0480; J0696; J1644; J1815; J2405; J2765; J7030; J7050; J7070; P9047

== ENCOUNTER 2018-06-17 15:09 | Inpatient (IN) | payer OTHER ==
[~2018-06-17] VITALS: Ht 188 cm; Wt 123.5 kg
[~2018-06-17 15:09] MED LIST changes: +BENTYL10 MG PO; +FENTANYL1 EAC4 TD; +OXYCODONE HCL5 MG PO
[2018-06-17 15:58] LABS: HEMATOCRIT 23.4 % (38.0-50.0); HEMOGLOBIN 7.7 G/DL (12.5-16.6); MCH 27.8 PG (29.0-34.0); MCHC 32.9 G/DL (30.0-36.0); MCV 84.5 FL (86-99); PLATELET COUNT 106 K/uL (156-360); RBC DIS.WIDTH-CV 22.3 % (11.8-14.6); RBC DIS.WIDTH-SD 65.4 % (39-53); RED BLOOD COUNT 2.77 M/uL (4.00-5.50)
[2018-06-17 16:04] LABS: INTER. NORMALIZED RATIO 1.3
[2018-06-17 16:05] LABS: BASOPHIL (%) 0.1 % (0-1); EOSINOPHIL (%) 0.2 % (0-5); IMMATURE GRANULOCYTE (%) 0.9 % (0.0-0.7); LYMPHOCYTE (%) 6.5 % (15-42); LYMPHOCYTE COUNT 0.9 K/uL (1.0-2.8); MONOCYTE (%) 5.6 % (3-12); MONOCYTE COUNT 0.7 K/uL (0-0.8); NEUTROPHIL (%) 86.7 % (45-76); NEUTROPHIL COUNT 11.3 K/uL (1.8-6.4)
[2018-06-17 16:07] LABS: ALBUMIN 2.2 g/dL (3.2-4.8); CHLORIDE 95 mEq/L (99-109); POTASSIUM 5.2 mEq/L (3.7-5.4); PTT 29.5 SEC (25-37); SODIUM 132 mEq/L (136-147)
[2018-06-17 16:09] LABS: GLUCOSE 248 mg/dL (70-99)
[2018-06-17 16:10] LABS: TOTAL PROTEIN 6.5 g/dL (6.4-8.3)
[2018-06-17 16:11] LABS: TOTAL BILIRUBIN 1.6 mg/dL (0.0-1.0)
[2018-06-17 16:13] LABS: ALKALINE PHOSPHATASE 264 IU/L (3-129); CREATININE 4.2 mg/dL (0.6-1.3); GFR ESTIMATE (CALCULATED) 15 mL/min/ (58.99-99999)
[2018-06-17 16:15] LABS: AST (GOT) 62 IU/L (2-34)
[2018-06-17 16:16] LABS: ALT (GPT) 37 IU/L (3-49)
[2018-06-17 16:19] LABS: UREA NITROGEN (BUN) 159 mg/dL (9-23)
[2018-06-17 16:21] LABS: LIPASE > 1055 U/L (1.0-51.0)
[2018-06-17] MEDS ORDERED: NOVOLOG 10100 UNITS/ SC (17:16)
[2018-06-17] MEDS ORDERED: FLEET ENEMA-AD118 ML PR (17:17)
[2018-06-17] MEDS ORDERED: MILK OF MAGN PO (17:17)
[2018-06-17] MEDS ORDERED: DULCOLAX10 MG PR (17:17)
[2018-06-17] MEDS ORDERED: OXYCODONE HCL10 MG PO (17:19)
[2018-06-17 23:50] VITALS: BP 110/61
[2018-06-18 03:33] VITALS: BP 111/64
[2018-06-18 05:53] LABS: MCH 27.1 PG (29.0-34.0); MCHC 31.8 G/DL (30.0-36.0); MCV 85.3 FL (86-99); PLATELET COUNT 88 K/uL (156-360); RBC DIS.WIDTH-CV 22.7 % (11.8-14.6); RBC DIS.WIDTH-SD 66.9 % (39-53); RED BLOOD COUNT 2.58 M/uL (4.00-5.50); WHITE BLOOD COUNT 10.2 K/uL (4.1-10.2)
[2018-06-18 06:08] LABS: APPEARANCE CLEAR ((CLEAR)); BILIRUBIN NEGATIVE; BLOOD NEGATIVE; COLOR YELLOW ((YELLOW)); GLUCOSE (STRIP) NEGATIVE; KETONES NEGATIVE; LEUKOCYTES NEGATIVE; NITRITE NEGATIVE; PROTEIN (STRIP) NEGATIVE; SPECIFIC GRAVITY 1.016 (1.000-1.030); UCUL ADDED? NO; UROBILINOGEN 0.2 MG/DL (0.2-1.0)
[2018-06-18 06:15] LABS: CHLORIDE 97 MEQ/L (99-109); CREATININE 3.6 MG/DL (0.6-1.3); GFR ESTIMATE (CALCULATED) 18 mL/min/ (58.99-99999); GLUCOSE 163 mg/dL (70-99); POTASSIUM 4.7 MEQ/L (3.7-5.4); SODIUM 136 MEQ/L (136-147)
[2018-06-18 06:26] LABS: UREA NITROGEN (BUN) 151 mg/dL (9-23)
[2018-06-18 08:03] VITALS: BP 119/63
[2018-06-18 20:48] LABS: MCV 84.8 FL (86-99)
[2018-06-18 20:49] LABS: HEMOGLOBIN 9.4 G/DL (12.5-16.6)
[2018-06-18 21:07] VITALS: BP 116/68
[2018-06-18 23:30] VITALS: BP 95/63
[2018-06-19 00:58] VITALS: BP 106/64
[2018-06-19 04:45] VITALS: BP 100/61
[2018-06-19 05:41] LABS: BASOPHIL (%) 0.1 % (0-1); EOSINOPHIL (%) 0.4 % (0-5); EOSINOPHIL COUNT 0.1 K/uL (0-0.3); HEMATOCRIT 28.3 % (38.0-50.0); HEMOGLOBIN 9.3 G/DL (12.5-16.6); IMMATURE GRANULOCYTE (%) 0.9 % (0.0-0.7); LYMPHOCYTE (%) 5.5 % (15-42); LYMPHOCYTE COUNT 0.8 K/uL (1.0-2.8); MCHC 32.9 G/DL (30.0-36.0); MCV 85.2 FL (86-99); MONOCYTE (%) 6.1 % (3-12); MONOCYTE COUNT 0.9 K/uL (0-0.8); NEUTROPHIL COUNT 12.9 K/uL (1.8-6.4); PLATELET COUNT 90 K/uL (156-360); RBC DIS.WIDTH-CV 22.5 % (11.8-14.6); RBC DIS.WIDTH-SD 66.5 % (39-53); WHITE BLOOD COUNT 14.9 K/uL (4.1-10.2)
[2018-06-19 05:53] LABS: RED BLOOD COUNT 3.32 M/uL (4.00-5.50)
[2018-06-19 06:09] LABS: ALBUMIN 2.3 G/DL (3.2-4.8); ALKALINE PHOSPHATASE 201 IU/L (3-129); ALT (GPT) 22 IU/L (3-49); AST (GOT) 58 IU/L (2-34); CHLORIDE 98 MEQ/L (99-109); DIRECT BILIRUBIN 1.1 mg/dL (0.0-0.3); LIPASE 483 U/L (1.0-51.0); MAGNESIUM 2.4 mg/dl (1.3-2.7); POTASSIUM 4.7 MEQ/L (3.7-5.4); SODIUM 136 MEQ/L (136-147); TOTAL BILIRUBIN 1.8 MG/DL (0.0-1.0); TOTAL PROTEIN 5.6 G/DL (6.4-8.3)
[2018-06-19 06:12] LABS: GFR ESTIMATE (CALCULATED) 23 mL/min/ (58.99-99999); GLUCOSE 119 mg/dL (70-99); PHOSPHORUS 7.3 mg/dL (2.5-4.9)
[2018-06-19 06:19] LABS: UREA NITROGEN (BUN) 110 mg/dL (9-23)
[2018-06-19 07:38] VITALS: BP 111/55
[2018-06-19 11:25] LABS: ANTI-HEPATITIS B CORE (TOTAL) Nonreactive
[2018-06-19 11:36] LABS: HEPATITIS B SURFACE ANTIGEN Nonreactive
[2018-06-19 11:37] LABS: HEPATITIS B SURFACE ANTIBODY Nonreactive
[2018-06-19 11:53] LABS: HEPATITIS C ANTIBODY REACTIVE
[2018-06-19 13:00] VITALS: BP 111/55
== END 2018-06-19 14:50 | disposition hospice, home (50) | DRG 441 ==
LOC: EME 15:09 → EDOF 18:36 → 5SOUTH 18:36 → ENRESERV 18:38 → CANRESERV 18:38 → ENRESERV 18:41 → CANRESERV 18:41 → ENRESERV 20:12 → CANRESERV 20:12 → ENRESERV 20:17 → CANRESERV 20:53 → ENRESERV 20:53 → 5SOUTH 23:29
PROVIDERS: Hospitalist; Internal Medicine Nephrology; Physician Assistant
PROC: 0W9G3ZZ Drainage of Peritoneal Cavity, Percutaneous Approach (ICD-10-PCS; principal; 2018-06-17)
PROC: 5A1D70Z Performance of Urinary Filtration, Intermittent, Less than 6 Hours Per Day (ICD-10-PCS; 2018-06-18)
DX: K72.90 Hepatic failure, unspecified without coma (principal); N17.9 Acute kidney failure, unspecified; C22.0 Liver cell carcinoma; E66.01 Morbid (severe) obesity due to excess calories; C78.00 Secondary malignant neoplasm of unspecified lung; R53.81 Other malaise; K74.60 Unspecified cirrhosis of liver; I12.9 Hypertensive chronic kidney disease with stage 1 through stage 4 chronic kidney disease, or unspecified chronic kidney disease; K29.71 Gastritis, unspecified, with bleeding; B19.20 Unspecified viral hepatitis C without hepatic coma; R18.8 Other ascites; R60.9 Edema, unspecified; G89.29 Other chronic pain; D61.818 Other pancytopenia; N18.4 Chronic kidney disease, stage 4 (severe); F10.10 Alcohol abuse, uncomplicated; R53.1 Weakness; E11.22 Type 2 diabetes mellitus with diabetic chronic kidney disease; Z51.5 Encounter for palliative care; Z66 Do not resuscitate; Z87.891 Personal history of nicotine dependence; Z85.05 Personal history of malignant neoplasm of liver; Z99.2 Dependence on renal dialysis; Z89.611 Acquired absence of right leg above knee; Z68.34 Body mass index [BMI] 34.0-34.9, adult; Z86.14 Personal history of Methicillin resistant Staphylococcus aureus infection; Z89.511 Acquired absence of right leg below knee; Z63.8 Other specified problems related to primary support group
CPT/HCPCS: 49083; 71046; 74177; 80048; 80053; 80076; 81003; 82140; 82948; 83690; 83735; 84100; 85014; 85018; 85025; 85027; 85610; 85730; 86704; 86706; 86803; 86850; 86900; 86901; 86920; 87340; 99281; 99285; C1750; C1894; C9113; J0690; J0696; J1170; J1644; J1815; J2250; J2270; J2405; J3010; P9016; P9047; S0020